=== PATIENT | female | born 1990 | race American Indian/Alaskan Native ===

== ENCOUNTER 2017-11-07 16:25 | Emergency (ER) | payer OTHER ==
[2017-11-07 16:53] VITALS: RESP 18; BMI 32.5
[2017-11-07 18:19] LABS: INFLUENZA A B NEGATIVE FOR FLU A/B (NEGATIVE)
--- NOTE | 2017-11-07 19:19 | ED PDOC ---
Arrival/HPI - General Chief Complaint: ENT Problem Time Seen by Provider: 11/07/17 17:33 Historian: Patient - History of Present Illness Narrative History of Present Illness (Text): 11/07/17 19:15 27-year-old female presents today with a one-day history of sore throat and nasal congestion and cough. Patient complaining of subjective fevers at home. No medications have been taken for pain. Patient denies nausea vomiting or diarrhea. Denies abdominal pain. Denies dizziness or weakness. Patient states cough is nonproductive. No other complaints Time/Duration: Other (1 day) Symptom Onset: Sudden Symptom Course: Unchanged Quality: Aching, Burning Severity Level: 4 Past Medical History - Provider Review Nursing Documentation Reviewed: Yes - Travel History Have you recently traveled outside [place] w/in the past 3 mons?: No - Tetanus Immunization Tetanus Immunization: Unknown - Psychiatric Hx Substance Use: No Family/Social History - Physician Review Nursing Documentation Reviewed: Yes Family/Social History: Unknown Family HX Smoking Status: Never Smoked Hx Alcohol Use: No Hx Substance Use: No Allergies/Home Meds Allergies/Adverse Reactions: Allergies No Known Allergies Allergy (Verified 11/07/17 16:48) Review of Systems - Review of Systems Constitutional: absent: Fatigue, Fevers ENT: Sore Throat, Sinus Congestion Respiratory: Cough. absent: SOB Cardiovascular: absent: Chest Pain, Palpitations Gastrointestinal: absent: Abdominal Pain, Nausea, Vomiting Genitourinary Female: absent: Dysuria Musculoskeletal: absent: Arthralgias Skin: absent: Rash, Pruritis Psychiatric: absent: Anxiety, Depression Physical Exam Vital Signs Reviewed: Yes Vital Signs Temp Pulse Resp BP Pulse Ox 11/07/17 16:49 100.5 F H 88 18 115/80 97 Temperature: Febrile Blood Pressure: Normal Pulse: Regular Respiratory Rate: Normal Appearance: Positive for: Well-Appearing, Non-Toxic, Comfortable Pain Distress: None Mental Status: Positive for: Alert and Oriented X 3 - Systems Exam Head: Present: Atraumatic Mouth: Present: Moist Mucous Membranes, Normal Lips, Normal Tounge. No: Drooling, Trismus Pharnyx: Present: ERYTHEMA. No: EXUDATE, TONSILS ENLARGED, Peritonsilar Swelling, Uvular Deviation, Muffled/Hoarse Voice Nose (External): Present: Atraumatic Nose (Internal): Present: Normal Inspection, Clear Mucous Neck: Present: Normal Range of Motion, Trachea Midline. No: Meningeal Signs, Lymphadenopathy Respiratory/Chest: Present: Clear to Auscultation, Good Air Exchange. No: Respiratory Distress, Accessory Muscle Use Cardiovascular: Present: Regular Rate and Rhythm, Normal S1, S2. No: Murmurs Abdomen: No: Tenderness Neurological: Present: GCS=15, Speech Normal Skin: Present: Warm, Dry, Normal Color. No: Rashes Psychiatric: Present: Alert, Oriented x 3 Medical Decision Making ED Course and Treatment: 11/07/17 19:22 Patient is nontoxic well appearing in no distress. Tolerating p.o. fluids and solids tylenol po rapid flu; negative rapid strep; negative zithromax po Patient reassessment: Patient feeling better after medications, vital signs stable. Moist mucous membranes. I advised follow up with primary care physician within the next 2 days, advised to increase fluids take medications as prescribed and return if symptoms worsen persist or if new symptoms develop IMPRESSION; pharyngitis Motrin every 6 hours as needed for pain/fever reduction Increase fluids zithromax; daily x 4 days. Follow up primary care physician within the next 2 days Saltwater gargles, throat lozenges Return if symptoms worsen persist or if the symptoms develop - Lab Interpretations Lab Results: Lab Results 11/07/17 18:01: Influenza Typ A,B (EIA) Negative for flu a/b, Grp A Beta Strep Ag Negative - Medication Orders Current Medication Orders: Discontinued Medications Acetaminophen (Tylenol 325mg Tab) 975 mg PO STAT STA Stop: 11/07/17 17:34 Last Admin: 11/07/17 17:57 Dose: 975 mg MAR Pain/Vitals Document 11/07/17 17:57 [facility] (Rec: 11/07/17 17:59 [facility] [id number]) Pain Reassessment Is This A Pain ReAssessment? No Sleep Is patient sleeping during reassessment? No Presence of Pain Presence of Pain Yes Pain Scale Used Pain Scale Used Numeric Location Pain Location Body Site Throat Intensity 4 Scale Used Numeric Azithromycin (Zithromax) 500 mg PO STAT STA PRN Reason: Protocol Stop: 11/07/17 19:12 Disposition/Present on Arrival - Present on Arrival Any Indicators Present on Arrival: No History of DVT/PE: No History of Uncontrolled Diabetes: No Urinary Catheter: No History of Decub. Ulcer: No History Surgical Site Infection Following: None - Disposition Have Diagnosis and Disposition been Completed?: Yes Diagnosis: Pharyngitis, Cough Disposition: HOME/ ROUTINE Disposition Time: 19:30 Patient Plan: Discharge Condition: GOOD Discharge Instructions (ExitCare): Pharyngitis (ED) Additional Instructions: Motrin every 6 hours as needed for pain/fever reduction Increase fluids zithromax; daily x 4 days. Follow up primary care physician within the next 2 days Saltwater gargles, throat lozenges Return if symptoms worsen persist or if the symptoms develop Prescriptions: Azithromycin [Zithromax] 250 mg PO DAILY #4 tab Ibuprofen [Motrin] 600 mg PO Q6H PRN #20 tab PRN Reason: pain/fever reduction Referrals: Alex Murray MD [Primary Care Provider] - Follow up with primary Forms: [employer] ([place]uean), WORK NOTE
[2017-11-07 19:48] VITALS: BP 117/75; PULSE 82; TEMP 98.1; O2SAT 100
== END 2017-11-07 19:48 | disposition home or self-care (01) ==
LOC: ED 16:25
DX: J02.9 Acute pharyngitis, unspecified (principal); R05 Cough